=== PATIENT | male | born 1985 | race African-American/Black ===

== ENCOUNTER 2024-11-07 19:46 | Emergency (ER) | payer OTHER ==
[~2024-11-07] VITALS: Ht 182.9 cm; Wt 81.6 kg
[2024-11-07] MEDS ORDERED: KETO10TA2 PO (20:14)
[2024-11-07] MEDS ORDERED: OXYC-128 PO (20:14)
[2024-11-07] MEDS ORDERED: KETOROLAC TROMETHAMINE 15 MG/ML VIAL ONE (20:29)
[2024-11-07] MEDS ORDERED: oxyCODONE/APAP (5/325 MG) 1 UDTAB TABLET ONE (20:30)
[2024-11-07] MEDS: KETOROLAC TROMETHAMINE 15 MG/ML VIAL IM ONE (20:35)
[2024-11-07] MEDS: oxyCODONE/APAP (5/325 MG) 1 UDTAB TABLET PO ONE (20:36)
[2024-11-07 21:54] VITALS: BP 121/82; TEMP 98.9; O2SAT 98
== END 2024-11-07 21:55 | disposition home or self-care (01) ==
LOC: ER 19:52
DX: T85.848A Pain due to other internal prosthetic devices, implants and grafts, initial encounter (principal); Y92.89 Other specified places as the place of occurrence of the external cause
CPT/HCPCS: J1885

== ENCOUNTER 2024-11-14 17:52 | Emergency (ER) | payer BC ==
[~2024-11-14] VITALS: Ht 180.3 cm; Wt 92.5 kg
[~2024-11-14 17:52] MED LIST: KETO10TA2 PO; OXYC-128 PO
[2024-11-14] MEDS ORDERED: ACET-2030 PO (18:38)
[2024-11-14] MEDS ORDERED: AMOX500C2 PO (18:38)
[2024-11-14 18:46] VITALS: BP 129/70; TEMP 98.2; O2SAT 96
== END 2024-11-14 18:46 | disposition home or self-care (01) ==
LOC: ER 17:52
DX: K12.2 Cellulitis and abscess of mouth (principal); K08.89 Other specified disorders of teeth and supporting structures